=== PATIENT | male | born 1960 | race Caucasian/White ===

== ENCOUNTER 2023-04-04 15:10 | Emergency (ER) | payer OTHER ==
[2023-04-04] MEDS ORDERED: Lidocaine 1% 10 ML MDV INJECT ONE (15:24)
[2023-04-04] MEDS ORDERED: Diphtheria,Pertussis(Acell),Tetanus Vaccine 0.5 ML Syringe IM ONE (15:24)
[2023-04-04 16:48] VITALS: BP 125/82; PULSE 62
== END 2023-04-04 16:50 | disposition home or self-care (01) ==
LOC: JD.ED 15:10
DX: S61.411A Laceration without foreign body of right hand, initial encounter (principal); W26.0XXA Contact with knife, initial encounter
CPT/HCPCS: 12002; 90471; 90715; 99282; 99282-25; J3490